=== PATIENT | female | born 1995 | race Caucasian/White ===

== ENCOUNTER 2020-06-27 16:16 | Outpatient (CLI) | payer OTHER, SELFPAY ==
[2020-06-29 13:59] LABS: SARS-CoV-2 RNA PCR Positive
== END 2020-06-27 16:17 | disposition home or self-care (01) ==
PROVIDERS: PCP Internal Medicine; Visit Provider Internal Medicine
DX: U07.1 COVID-19 (principal)
CPT/HCPCS: 87635; C9803; U0003

== ENCOUNTER 2021-06-11 14:23 | Outpatient (CLI) | payer OTHER, SELFPAY ==
[2021-06-11 15:56] LABS: SARS-CoV-2 RNA PCR Negative (Negative)
== END 2021-06-11 14:24 | disposition home or self-care (01) ==
PROVIDERS: PCP Internal Medicine; Visit Provider Internal Medicine
DX: Z20.822 Contact with and (suspected) exposure to COVID-19 (principal)
CPT/HCPCS: C9803; U0003; U0005

== ENCOUNTER 2022-03-19 08:01 | Outpatient (CLI) | payer OTHER, SELFPAY ==
[2022-03-19 08:28] LABS: Basophils Absolute Auto 0.05 K/mm3 (0.00-0.10); Basophils Percent Auto 0.9 % (0.0-1.0); Eosinophils Absolute Auto 0.13 K/mm3 (0.02-0.50); Eosinophils Percent Auto 2.3 % (1.0-6.0); Hematocrit 41.2 % (35.0-49.0); Hemoglobin 13.7 g/dL (12.0-15.0); Immature Granulocyte Absolute 0.01 K/mm3 (0.00-0.00); Immature Granulocyte Percent A 0.2 % (0.0-0.0); Lymphocytes Absolute Auto 1.35 K/mm3 (1.10-4.50); Lymphocytes Percent Auto 23.5 % (18.0-42.0); Mean Corpuscular HGB Conc 33.3 g/dL (32.0-36.0); Mean Corpuscular Hemoglobin 30.9 pg (27.0-31.0); Mean Platelet Volume 10.5 fl (9.2-11.8); Monocytes Absolute Auto 0.51 K/mm3 (0.10-0.90); Monocytes Percent Auto 8.9 % (2.0-11.0); Neutrophils Absolute Auto 3.7 K/mm3 (1.7-7.2); Neutrophils Percent Auto 64.2 % (50.0-70.0); Platelet Count Result 242 K/mm3 (150-420); Red Blood Count 4.43 M/mm3 (4.20-5.40); Red Cell Distribution Width 11.4 % (11.6-14.4); White Blood Count 5.8 K/mm3 (4.8-10.8)
[2022-03-19 10:02] LABS: Alanine Aminotransferase 28 U/L (14-59); Alkaline Phosphatase 66 U/L (46-116); Anion Gap 9 mmol/L (8-16); Aspartate Amino Transferase 20 U/L (15-37); Bilirubin,Total 0.5 mg/dL (0.00-1.00); Blood Urea Nitrogen 16 mg/dL (7-18); Carbon Dioxide 26 mmol/L (21-32); Chloride 105 mmol/L (98-108); Cholesterol 167 mg/dL (0-200); Estimated Glomerular Filt Rate > 60; Ferritin 64 ng/mL (8-252); Free T3 2.52 pg/mL (2.18-3.98); Glucose 86 mg/dL (70-99); HDL Direct 96 mg/dL (40-60); Iron 70 ug/dL (50-170); LDL Cholesterol Calculated 67 mg/dL (<130); Osmolality Calculated 290 mOsm/kg (285-295); Percent Iron Saturation 26 % (12-57); Potassium 4.2 mmol/L (3.5-5.1); Sodium 140 mmol/L (136-145); Thyroid Stimulating Hormone 1.09 uIU/mL (0.36-3.74); Total Protein 7.4 g/dL (6.4-8.2); Triglycerides < 22 mg/dL (0-150)
[2022-03-19 10:37] LABS: Folic Acid > 20.0 ng/mL (8.6->20)
[2022-03-23 14:16] LABS: DHEA-Sulfate 160 mcg/dL (18-391); Insulin Level Total 2.6 uIU/mL (<=19.6); Progesterone 0.3 ng/mL (***); T3 Reverse 12 ng/dL (8-25); Testosterone Free 2.1 pg/mL (0.1-6.4); Testosterone Total 26 ng/dL (2-45); Thyroid Peroxidase Antibodies 1 IU/mL (<9); Vitamin D 25 Hydroxy 35 ng/mL (30-100)
[2022-03-24 15:38] LABS: Homocysteine 5.5 umol/L (<10.4)
[2022-03-26 23:57] LABS: Estradiol, Ultrasensitive 60 pg/mL
== END 2022-03-19 08:02 | disposition home or self-care (01) ==
PROVIDERS: PCP Internal Medicine
DX: R10.9 Unspecified abdominal pain (principal); F41.9 Anxiety disorder, unspecified; R42 Dizziness and giddiness; R53.83 Other fatigue; L65.9 Nonscarring hair loss, unspecified; R51.9 Headache, unspecified; G47.00 Insomnia, unspecified; N92.6 Irregular menstruation, unspecified; R68.82 Decreased libido; L70.9 Acne, unspecified
CPT/HCPCS: 36415; 80053; 80061; 82306; 82627; 82670; 82728; 82746; 83090; 83525; 83540; 83550; 83735; 84144; 84402; 84403; 84439; 84443; 84481; 84482; 85025; 86376; 86628

== ENCOUNTER 2022-05-22 11:13 | Outpatient (CLI) | payer OTHER, SELFPAY | END 2022-05-22 11:14 | disposition home or self-care (01) | LOC: CHSLAB 11:17 | PROVIDERS: PCP Internal Medicine | DX: N91.2 Amenorrhea, unspecified (principal); R10.31 Right lower quadrant pain | CPT/HCPCS: 36415; 84702 ==

== ENCOUNTER 2022-05-24 11:19 | Outpatient (CLI) | payer OTHER, SELFPAY | END 2022-05-24 11:20 | disposition home or self-care (01) | LOC: CHSLAB 11:21 | PROVIDERS: PCP Internal Medicine; Visit Provider Obstetrics & Gynecology | DX: O26.899 Other specified pregnancy related conditions, unspecified trimester (principal); R10.9 Unspecified abdominal pain | CPT/HCPCS: 36415; 84702 ==

== ENCOUNTER 2022-06-12 13:17 | Outpatient (CLI) | payer OTHER, SELFPAY ==
[2022-06-12 13:37] LABS: Add Urine Microscopic? NO; Appearance Urine Clear (Clear); Basophils Absolute Auto 0.04 K/mm3 (0.00-0.10); Basophils Percent Auto 0.6 % (0.0-1.0); Bilirubin Urine Negative (Negative); Blood Urine Negative (Negative); Color Urine Light Yellow (Yellow); Eosinophils Absolute Auto 0.18 K/mm3 (0.02-0.50); Eosinophils Percent Auto 2.7 % (1.0-6.0); Glucose Urine UA Negative (Negative); Hematocrit 35.1 % (35.0-49.0); Immature Granulocyte Absolute 0.03 K/mm3 (0.00-0.00); Immature Granulocyte Percent A 0.5 % (0.0-0.0); Ketones Urine Negative (Negative); Leukocyte Esterase Ur Negative (Negative); Lymphocytes Absolute Auto 1.66 K/mm3 (1.10-4.50); Mean Corpuscular HGB Conc 34.2 g/dL (32.0-36.0); Mean Corpuscular Hemoglobin 31.3 pg (27.0-31.0); Mean Corpuscular Volume 91.6 fL (78.0-102.0); Monocytes Absolute Auto 0.72 K/mm3 (0.10-0.90); Monocytes Percent Auto 10.8 % (2.0-11.0); Neutrophils Percent Auto 60.4 % (50.0-70.0); Nitrate Urine Negative (Negative); Platelet Count Result 225 K/mm3 (150-420); Protein Urine Negative (Negative); Red Blood Count 3.83 M/mm3 (4.20-5.40); Red Cell Distribution Width 11.6 % (11.6-14.4); Urobilinogen Urine 0.2 mg/dL (0.2-1.0); White Blood Count 6.7 K/mm3 (4.8-10.8)
[2022-06-12 14:50] LABS: HIV 1 P24 AG Negative (Negative); HIV 1/2 AB Negative (Negative)
[2022-06-14 17:12] LABS: Hepatitis B Surface Antigen Nonreactive (Nonreactive); Hepatitis C Signal to Cutoff 0.01 ratio (<1.00); Hepatitis C Virus Antibody Nonreactive (Nonreactive)
[2022-06-15 14:02] LABS: RPR Screen Non-Reactive (Non-Reactive)
[2022-06-16 06:52] LABS: Rubella IgG Antibody 6.35 Index
== END 2022-06-12 13:18 | disposition home or self-care (01) ==
LOC: CHSLAB 13:20
PROVIDERS: PCP Internal Medicine; Visit Provider Advanced Practice Midwife
DX: Z36.89 Encounter for other specified antenatal screening (principal)
CPT/HCPCS: 36415; 81003; 85025; 86592; 86703; 86706; 86762; 86850; 86900; 86901; 87086

== ENCOUNTER 2022-08-20 18:20 | Emergency (ER) | payer OTHER, SELFPAY ==
[2022-08-20 18:28] VITALS: BP 111/65; PULSE 85; RESP 16; TEMP 37.2; O2SAT 100
--- NOTE | 2022-08-20 18:36 | ED.DIZZY ---
HPI - Dizziness General Chief Complaint: Dizziness Stated Complaint: LIGHT HEADED/18 WEEKS Time Seen by Provider: 08/20/22 18:36 Source: patient Mode of arrival: ambulatory Limitations: no limitations History of Present Illness HPI Narrative: 27-year-old female who is 18 weeks presents with concern for 2 episodes today of lightheadedness/dizziness. She reports the 1st happened around 1 she is simply was because she did knee, the 2nd happened around 16 6 she she denies fever, chills, sweats, dysuria,, urgency, frequency. She denies headache, vision changes. She reports a history of having lower blood pressure. She denies chest pain or shortness of breath MD elicited complaint: lightheadedness Related Data Home Medications Medication Instructions Recorded Confirmed No Home Medications 08/20/22 08/20/22 Allergies Allergy/AdvReac Type Severity Reaction Status Date / Time No Known Allergies Allergy Verified 08/20/22 18:35 Review of Systems Review of Systems: CONSTITUTIONAL: Denies malaise, chills, sweats, or fever. EYES: Denies visual changes ENT: Reports chronic rhinorrhea. Denies congestion, sinus pain, otalgia or sore throat. CARDIOVASCULAR: Denies chest pain, palpitations, or edema. RESPIRATORY: Denies cough or dyspnea. GASTROINTESTINAL: Denies abdominal pain, nausea, vomiting, diarrhea GENITOURINARY: Denies dysuria or hematuria. MUSCULOSKELETAL: Denies myalgia. NEUROLOGIC: Denies numbness, weakness, or headache. Reports 2 episodes of dizziness/lightheadedness All systems reviewed & are unremarkable except as noted in HPI and below PMFSH Comments At time of signature, agree with nursing past medical, surgical, social and family history. There is no relevant family history pertinent to the presenting complaint Exam Narrative: GENERAL: Well-appearing, well-nourished, and in no acute distress. HEAD: Normocephalic, atraumatic. EYES: PERRLA, sclera clear, and EOMI. No nystagmus. ENT: Nares clear, turbinates pink, no rhinorrhea or epistaxis. Mucous membranes moist. TM pearly yun with sharp light reflex bilaterally; no tragal tenderness. Oropharynx without erythema or lesions. Tonsils not enlarged and without exudate. NECK: Supple. No lymphadenopathy. No jugular venous distension, thyromegaly, or carotid bruits. Carotids were easily palpable bilaterally. CHEST: No respiratory distress. Clear to auscultation. No bony deformities, no asymmetry. Speaks in full sentences. HEART: Regular rate and rhythm. No murmur heard. Normal peripheral pulses. SKIN: Warm, dry, no visible rash. NEURO: Alert and oriented x3. No focal deficits. PSYCH: Normal mood and affect Course Course Emergency Course: The limited diagnostic capability at [facility], discuss possibility of transfer to emergency room for further evaluation versus following up with her card game operator tomorrow. Patient would rather call the after hours line in see her card game operator tomorrow. Patient is aware of diagnosis, understands and agrees to treatment plan. Anticipatory guidance given. Patient agrees to follow-up as directed and is aware of reasons to seek care at the emergency department. Portions of this record may have been created with voice recognition software Level of Care: [facility] Visit Vital Signs Vital signs: Vital Signs Temperature 98.9 F 08/20/22 18:28 Pulse Rate 85 08/20/22 18:28 Respiratory Rate 16 08/20/22 18:28 Blood Pressure 111/65 08/20/22 18:28 Pulse Oximetry 100 08/20/22 18:28 Temperature 98.9 F 08/20/22 18:28 Pulse Rate 85 08/20/22 18:28 Respiratory Rate 16 08/20/22 18:28 Blood Pressure 111/65 08/20/22 18:28 Pulse Oximetry 100 08/20/22 18:28 Reviewed. MDM - Dizziness MDM Narrative Medical decision making narrative: Exam findings and UA show no acute concerns or changes; patient is non-toxic appearing and is in no distress. Patient is appropriate for outpatient treatme
== END 2022-08-20 19:01 | disposition home or self-care (01) ==
PROVIDERS: Emergency Provider Nurse Practitioner; PCP Internal Medicine
DX: O99.891 Other specified diseases and conditions complicating pregnancy (principal); Z3A.18 18 weeks gestation of pregnancy; R42 Dizziness and giddiness
CPT/HCPCS: 81003; 99213; G0463

== ENCOUNTER 2022-08-26 14:21 | Outpatient (CLI) | payer OTHER, SELFPAY ==
--- NOTE | ~2022-08-26 | US_ITS ---
EXAMINATION: US carotid duplex BI DATE: 08/26/2022 15:30 INDICATION: Extreme dizziness. TECHNIQUE: Grayscale, color Doppler, and pulsed Doppler images of the cervical carotid arteries were obtained. The degree of vessel stenosis is placed in one of the following categories: normal, <50%, 5 0-69%, >=70% but less than near-occlusion, near-occlusion, or total occlusion. Note that percent sten osis relative to normal distal artery lumen diameter is indirectly measured from velocity measurement s as described by Kosta, et al. Radiology 2003; [id number]:340-346. Notes: Normal: Peak systolic velocity <125 centimeters/sec and no plaque <50%. Peak systolic velocity <125 ( EDV <40; ICA/CCA PSV ratio <2.0; used these factors only a tandem lesions or low cardiac output or co ntralateral disease) 50-69 %: PSV 125-230 (EDV 40-100; ratio 2-4) >= 70% but less than near occlusion: PSV greater than 230 (EDV > 100; ratio> 4.0) Near Occlusion: PSV that is variable; markedly narrowed lumen Occlusion: Absent flow on color/spectral Doppler and no lumen on yun scale. COMPARISON: None. FINDINGS: RIGHT: The right common carotid artery (CCA) peak systolic velocity (PSV) is 117 cm/s. The right internal ca rotid artery (ICA) PSV is 108 cm/s. The right ICA end-diastolic velocity (EDV) is 17 cm/s. The right ICA/CCA PSV ratio is 0.9. The external carotid artery (ECA) PSV is 108 cm/s. There is antegrade flow in the right vertebral artery. LEFT: The left CCA PSV is 100 cm/s. The left ICA PSV is 101 cm/s. The left ICA EDV is 27 cm/s. The left ICA /CCA PSV ratio is 1.0. The ECA PSV is 75 cm/s. There is antegrade flow in the left vertebral artery. IMPRESSION: 1. Less than 50% stenosis in the right internal carotid artery by sonographic criteria. 2. Less than 50% stenosis in the left internal carotid artery by sonographic criteria. Reviewed, dictated and finalized at location A. CAL TERMINOLOGIST IMPRESSION: 1. Less than 50% stenosis in the right internal carotid artery by sonographic diana richey. 2. Less than 50% stenosis in the left internal carotid artery by sonographic dougie yanes.
--- NOTE | ~2022-08-26 | US_ITS ---
EXAMINATION: US soft tissue head and neck DATE: 08/26/2022 15:29 INDICATION: DIZZINESS, POSTERIOR NECK PAIN . TECHNIQUE: Grayscale and Doppler ultrasound images of the head and neck soft tissues were obtained. COMPARISON: None. FINDINGS: Sonographic images were obtained at the right posterior head soft tissues in the area of te nderness and clinical concern. 3 mm hypoechoic serpiginous appearing area likely representing a subcu taneous vein. No solid or cystic mass. Examination was somewhat difficult given that the area of clin ical concern is deep to the hair which impedes sonographic visualization. IMPRESSION: No solid or cystic mass detected in the area of clinical concern. Reviewed, dictated and finalized at location K. SERVICE LEAD
== END 2022-08-26 14:22 | disposition home or self-care (01) ==
LOC: CHSIMG 14:23
PROVIDERS: PCP Internal Medicine; Visit Provider Internal Medicine
DX: R42 Dizziness and giddiness (principal); M54.2 Cervicalgia
CPT/HCPCS: 76536; 93880

== ENCOUNTER 2024-03-23 09:43 | Outpatient (CLI) | payer OTHER, SELFPAY ==
--- NOTE | ~2024-03-23 | US_ITS ---
EXAMINATION: US OB follow up DATE: 03/23/2024 10:16 INDICATION: Maternal care for excessive growth during third trimester TECHNIQUE: Real-time ultrasound of the pelvis was performed. The interpreting radiologist was not pre sent for the study. COMPARISON: None. FINDINGS: There is a single living fetus in vertex presentation. The placenta is fundal. heart rate is 1 30 beats per minute (bpm). Normal cervical length of 4.8 cm. The amniotic fluid index is 21.9 cm, wh ich is normal. (5th%-95%: 7.5-24.4 cm at 37 weeks estimated gestational age). The following biometric data were obtained: BPD: 9.4 cm -> 38 weeks 1 days Head circumference: 32.9 cm -> 37 weeks 3 days Abdominal circumference: 34.1 cm -> 38 weeks 0 days Femur length: 7.0 cm -> 36 weeks 1 days These measurements are concordant. Head circumference to abdominal circumference ratio: 0.96 (normal range 0.91-1.05). Estimated weight: 3229 g (+/-) 484 g or 7 lbs. 2 oz. (+/-) 1 lb. 2 oz. IMPRESSION: 1. Single living fetus in vertex presentation with heart rate of 130 bpm. 2. Gestational age by ultrasound of 37 weeks 3 day(s) +/- 2 week(s) 4 day(s) with ultrasound estimate d date of delivery (WANDER) of 04/10/2024. Estimated weight is 58th percentile by Hadlock criteria when 04/09/2024 is used as the WANDER. Please correlate with clinical information or earlier ultrasounds for most accurate WANDER. 3. Normal amniotic fluid index of 21.9 cm. Reviewed, dictated and finalized at location B. IMPRESSION: 1. Single living fetus in vertex presentation with heart rate of 130 bpm. 2. Gestational age by ultrasound of 37 weeks 3 day(s) +/- 2 week(s) 4 day(s) wi th ultrasound estimated date of delivery (WANDER) of 04/10/2024. Estimated we ight is 58th percentile by Hadlock criteria when 04/09/2024 is used as the WANDER. Please correlate with clinical information or earlier ultrasounds for most accu rate WANDER. 3. Normal amniotic fluid index of 21.9 cm.
== END 2024-03-23 09:44 | disposition home or self-care (01) ==
PROVIDERS: PCP Internal Medicine
DX: O36.60X0 Maternal care for excessive fetal growth, unspecified trimester, not applicable or unspecified (principal); Z3A.37 37 weeks gestation of pregnancy
CPT/HCPCS: 76816

== ENCOUNTER 2024-05-05 14:39 | Outpatient (CLI) | payer OTHER, SELFPAY ==
--- NOTE | ~2024-05-05 | XR_ITS ---
XR chest 2V Ordering provider: Nemo Arias, [employer] COMM[employer]ICATION[employer] ENGINEER History: 29 years Female with . acute cough, sore throat, leukocytes . Comparison: None. FINDINGS: MEDIASTINUM: The cardiac silhouette is not enlarged. LUNGS: No infiltrates, effusions or pneumothorax. OTHER: No free air under the diaphragm. IMPRESSION: No acute cardiopulmonary pathology. Reviewed, dictated and finalized at location A.
[2024-05-05 14:56] LABS: Add Urine Microscopic? YES; Appearance Urine Clear (Clear); Bilirubin Urine Negative (Negative); Blood Urine Negative (Negative); Color Urine Light Yellow (Yellow); Glucose Urine UA Negative (Negative); Hematocrit 38.4 % (35.0-49.0); Hemoglobin 12.9 g/dL (12.0-15.0); Ketones Urine Negative (Negative); Leukocyte Esterase Ur 1+ (Negative); Mean Corpuscular HGB Conc 33.6 g/dL (32-36); Mean Corpuscular Hemoglobin 30.7 pg (27.0-31.0); Mean Corpuscular Volume 91.4 fL (78.0-102.0); Mean Platelet Volume 9.7 fl (9.2-11.8); Nitrate Urine Negative (Negative); Platelet Count Result 205 K/mm3 (150-420); Protein Urine Negative (Negative); Red Cell Distribution Width 11.3 % (11.6-14.4); Urobilinogen Urine 0.2 mg/dL (0.2-1.0); White Blood Count 6.1 K/mm3 (4.8-10.8)
[2024-05-05 15:11] LABS: Bacteria Urine Trace /hpf; RBC Urine None seen /hpf (0-2); Squamous Epithelial Cell Urine Few /hpf (Few); WBC Urine 0-3 /hpf (0-3)
[2024-05-05 15:22] LABS: Anion Gap 7 mmol/L (4-12); Blood Urea Nitrogen 5 mg/dL (7-18); Calcium 8.5 mg/dL (8.5-10.1); Carbon Dioxide 30 mmol/L (21-32); Chloride 102 mmol/L (98-108); Estimated Glomerular Filt Rate > 60; Glucose 86 mg/dL (70-99); Osmolality Calculated 284 mOsm/kg (285-295); Potassium 3.6 mmol/L (3.5-5.1); Sodium 139 mmol/L (136-145)
== END 2024-05-05 14:40 | disposition home or self-care (01) ==
PROVIDERS: PCP Internal Medicine; Visit Provider Nurse Practitioner Family
DX: R05.9 Cough, unspecified (principal); J02.9 Acute pharyngitis, unspecified; D72.829 Elevated white blood cell count, unspecified
CPT/HCPCS: 36415; 71046; 80048; 81001; 85027

== ENCOUNTER 2024-09-22 08:42 | Outpatient (CLI) | payer OTHER, SELFPAY ==
--- NOTE | ~2024-09-22 | US_ITS ---
EXAMINATION TYPE: US breast RT complete COMPARISON: NONE REASON FOR STUDY: Other signs and symptoms in breast TECHNIQUE: Targeted sonographic evaluation of the right breast was performed. INTERPRETATION: No solid or cystic lesion seen in the right breast in the region scanned. No sonographic abnormality identified. IMPRESSION: No sonographic abnormality seen at the area of clinical concern. BI-RADS CATEGORY: BI-RADS 1: Normal. Reviewed, dictated and finalized at location . [employer]
== END 2024-09-22 08:43 | disposition home or self-care (01) ==
PROVIDERS: PCP Nurse Practitioner Women's Health; Visit Provider Nurse Practitioner Women's Health
DX: N64.59 Other signs and symptoms in breast (principal)
CPT/HCPCS: 76641

== ENCOUNTER 2025-05-11 15:52 | Outpatient (CLI) | payer OTHER, SELFPAY ==
--- NOTE | ~2025-05-11 | XR_ITS ---
EXAMINATION: XR chest 2V 05/11/2025 16:17 INDICATION: Dizziness. Lightheadedness. Anxiety TECHNIQUE:Frontal and lateral images of the chest were obtained. COMPARISON: 05/05/2024 FINDINGS: The lungs are clear. The cardiomediastinal silhouette is within normal limits. There are no pleural effusions. There is no pneumothorax suspected. IMPRESSION: 1: NO ACUTE CARDIOPULMONARY DISEASE. Reviewed, dictated and finalized at location Q.
--- NOTE | 2025-05-11 16:07 | ECG_ITS ---
Test Date: 2025-05-11 16:21:04 Measurements Intervals Justin Rate: 62 P: 10 ME: 118 QRS: 64 QRSD: 94 T: 48 QT: 387 QTc: 395 Interpretive Statements SINUS RHYTHM WITH SHORT ME INTERVAL INCOMPLETE RIGHT BUNDLE BRANCH BLOCK BASELINE ARTIFACT- I, II, III ,AVR, AVL, AVF BORDERLINE ECG No previous ECG available for comparison Electronically Signed On 05-11-2025 16:32:34 CDT by Daron Arguelles D.O.
[2025-05-11 16:14] LABS: Hematocrit 41.6 % (35.0-49.0); Hemoglobin 13.4 g/dL (12.0-15.0); Mean Corpuscular HGB Conc 32.2 g/dL (32-36); Mean Corpuscular Hemoglobin 29.9 pg (27.0-31.0); Mean Corpuscular Volume 92.9 fL (78.0-102.0); Platelet Count Result 289 K/mm3 (150-420); Red Blood Count 4.48 M/mm3 (4.20-5.40); White Blood Count 7.5 K/mm3 (4.8-10.8)
[2025-05-11 16:16] LABS: Add Urine Microscopic? NO; Appearance Urine Clear (Clear); Glucose Urine UA Negative (Negative); Leukocyte Esterase Ur Negative (Negative); Nitrate Urine Negative (Negative); Specific Grav Ur <= 1.005 (1.010-1.020)
[2025-05-11 16:21] LABS: Alanine Aminotransferase 19 U/L (6-35); Albumin Level 4.4 g/dL (3.5-5.1); Alkaline Phosphatase 56 U/L (38-126); Anion Gap 7 mmol/L (4-12); Aspartate Amino Transferase 26 U/L (14-36); Bilirubin,Total 0.3 mg/dL (0.2-1.3); Blood Urea Nitrogen 13 mg/dL (7-17); Calcium 9.5 mg/dL (8.4-10.2); Carbon Dioxide 30 mmol/L (22-30); Chloride 103 mmol/L (98-107); Estimated Glomerular Filt Rate > 60; Glucose 94 mg/dL (65-110); Osmolality Calculated 290 mOsm/kg (285-295); Potassium 3.7 mmol/L (3.4-5.0); Sodium 140 mmol/L (137-145); Total Protein 7.3 g/dL (6.3-8.2)
[2025-05-11 16:44] LABS: Free T4 Free Thyroxine 1.39 ng/dL (0.78-2.19)
[2025-05-11 16:57] LABS: Thyroid Stimulating Hormone 1.380 uIU/mL (0.465-4.680)
== END 2025-05-11 15:53 | disposition home or self-care (01) ==
PROVIDERS: PCP Internal Medicine; Visit Provider Nurse Practitioner Family
DX: R42 Dizziness and giddiness (principal); J31.0 Chronic rhinitis; F41.9 Anxiety disorder, unspecified; I45.19 Other right bundle-branch block
CPT/HCPCS: 36415; 71046; 80053; 81003; 84439; 84443; 85027; 93005